=== PATIENT | female | born 1975 | race American Indian/Alaskan Native ===

== ENCOUNTER 2016-11-23 03:09 | Emergency (ER) | payer BC ==
[2016-11-23 03:34] VITALS: BP 140/77
[2016-11-23 04:45] LABS: Bacteria,Urine 1+ /HPF (Negative); Bilirubin,Urine NEG (Negative); Blood,Urine NEG (Negative); Ketones,Urine NEG (Negative); Leukocyte Esterase,Urine LG (Negative); Mucus,Urine FEW /HPF; Nitrite,Urine NEG (Negative); Protein,Urine <15 mg/dL mg/dL (Negative); Urobilinogen,Urine < 2.0 mg/dL (<2.0)
[2016-11-23] MEDS ORDERED: MOTRIN PO ONE (04:52)
[2016-11-23] MEDS ORDERED: FLEXERIL PO ONE (04:52)
--- NOTE | 2016-11-23 05:00 | Emergency Department Report ---
HPI - General Chief Complaint: Neck Pain/Injury Time Seen by Provider: 11/23/16 04:34 - HPI HPI: This is a 40-year-old female presents to the ED complaining of right sided neck and arm pain 3 days. Patient states she has had no injury or fall recently. Patient states her , new mattresses which is a bit firm than the old one. She describes pain as throbbing aching pain at the created movement of the neck and head. He denies fevers/chills/nausea/vomiting/abdominal pains chest pain shortness of breath or any other Problems ED Past Medical Hx - Past Medical History Previous Medical History?: No - Surgical History Past Surgical History?: Yes Additional Surgical History: broken arm - Social History Smoking Status: Never Smoker Substance Use Type: None - Medications Home Medications: Home Medications Medication Instructions Recorded Confirmed Last Taken Type Cyclobenzaprine [Flexeril 10 MG 10 mg PO QHS #20 tablet 11/23/16 Unknown Rx TAB] Ibuprofen [Motrin 800 MG tab] 800 mg PO TID #30 tablet 11/23/16 Unknown Rx Sulfamethoxazole/Trimethoprim 1 each PO BID #14 tablet 11/23/16 Unknown Rx [Bactrim DS TAB] ED Review of Systems ROS: Stated complaint: NECK PAIN/RIGHT ARM PAIN Other details as noted in HPI Constitutional: denies: chills, fever Eyes: denies: eye pain, eye discharge, vision change ENT: denies: ear pain, throat pain Respiratory: denies: cough, shortness of breath, wheezing Cardiovascular: denies: chest pain, palpitations Endocrine: no symptoms reported Gastrointestinal: denies: abdominal pain, nausea, diarrhea Genitourinary: denies: urgency, dysuria, discharge Musculoskeletal: denies: back pain, joint swelling, arthralgia Skin: denies: rash, lesions Neurological: denies: headache, weakness, paresthesias Psychiatric: denies: anxiety, depression Hematological/Lymphatic: denies: easy bleeding, easy bruising Physical Exam - Physical Exam Vital Signs: Vital Signs 11/23/16 03:26 Temperature 97.7 F Pulse Rate 74 Respiratory 18 Rate Blood Pressure 140/77 O2 Sat by Pulse 100 Oximetry Physical Exam: GENERAL: Alert and oriented x3, no apparent distress, Normal Gait, atraumatic. HEAD: Head is normocephalic and a-traumatic. EYES: Extra ocular muscles are intact. Pupils are equal, round, and reactive to light and accommodation. NECK: Supple. Non edematous, No carotid bruits. No lymphadenopathy or thyromegaly. No C-spine tenderness. limited range of movements to the right. No nucal rigidity LUNGS: Symetrical with respiration, No wheezing, no rales or crackles, CTAB. HEART: S1, S2 present, regular rate and rhythm without murmur, no rubs, no gallops. EXTREMITIES/MUSCULOSKELETAL: No cyanosis, clubbing, rash, lesions or edema. Full ROM bilaterally. pedal Pulses 2+ bilaterally. Tenderness to palpation of the Right trapezius muscle NEUROLOGIC: The patient is cooperative with no focal neurologic deficits. Cranial nerves II through XII are grossly intact. Normal speech. Normal sensation in bilateral upper extremities, SKIN: Warm and dry, No lesions, No ulceration or induration present. ED Course Vital Signs 11/23/16 03:26 Temperature 97.7 F Pulse Rate 74 Respiratory 18 Rate Blood Pressure 140/77 O2 Sat by Pulse 100 Oximetry ED Medical Decision Making - Medical Decision Making 40-year-old female presents with neck strain Urinalysis and urine tests ordered. Urinalysis suggests UTI urine test negative Discussed findings with patient. Discussed patient which treated for UTI. Discussed patient with follow-up care physician in 3-5 days. Vital signs are stable conditions in no acute distress patient is alert and oriented on discharge instructions given and follow-up. Critical care attestation.: If time is entered above; I have spent that time in minutes in the direct care of this critically ill patient, excluding procedure time. ED Disposition Clinical Impression: Neck muscle strain Qualifiers: Encounter type: initial encounter Qualified Code(s): S16.1XXA - Strain of muscle, fascia and tendon at neck level, initial encounter UTI (urinary tract infection) Qualifiers: Urinary tract infection type: acute cystitis Hematuria presence: without hematuria Qualified Code(s): N30.00 - Acute cystitis without hematuria Disposition: TO HOME OR SELFCARE Is pt being admited?: No Does the pt Need Aspirin: No Condition: Stable Instructions: Muscle Strain (ED), Urinary Tract Infection in Women (ED), Trigger Point Pain (ED), Musculoskeletal Pain (ED), Muscle Spasm (ED) Prescriptions: Cyclobenzaprine [Flexeril 10 MG TAB] 10 mg PO QHS #20 tablet Ibuprofen [Motrin 800 MG tab] 800 mg PO TID #30 tablet Sulfamethoxazole/Trimethoprim [Bactrim DS TAB] 1 each PO BID #14 tablet Referrals: PRIMARY CARE, [Primary Care Provider] - 3-5 Days [facility] [Outside] - 3-5 Days [facility] [Outside] - 3-5 Days [facility] [Outside] - 3-5 Days Forms: Accompanied Note, Work/School Release Form(ED) Time of Disposition: 05:07
== END 2016-11-23 05:21 | disposition home or self-care (01) ==
LOC: ED 03:09
DX: S16.1XXA Strain of muscle, fascia and tendon at neck level, initial encounter (principal); N30.00 Acute cystitis without hematuria; X58.XXXA Exposure to other specified factors, initial encounter; Y93.89 Activity, other specified; Y99.8 Other external cause status; Y92.89 Other specified places as the place of occurrence of the external cause
CPT/HCPCS: 36415; 81001; 81025; 84702; 84703; 99283